=== PATIENT | male | born 2000 | race Caucasian/White ===

== ENCOUNTER 2021-12-22 13:45 | Emergency (ER) | payer OTHER, SELFPAY ==
[2021-12-22 13:47] VITALS: BP 119/99; PULSE 102; RESP 18; TEMP 36.7; O2SAT 96; BMI 28.8
[2021-12-22 14:17] VITALS: PULSE 89; RESP 16; O2SAT 95
--- NOTE | 2021-12-22 15:04 | EDS_ITS ---
HPI <ZEKE Peguero - Last Filed: 12/22/21 15:51> History of Present Illness Chief Complaint: ETOH Intox Narrative Narrative: 21-year-old male states he drank an excessive amount of alcohol last night and was vomiting. This morning when he woke up he felt so weak he could barely move. He drank some fluids and has not vomiting today. He feels a little better but is here at the request of his family to be evaluated for alcohol poisoning. He states he drank a whole bottle of [place] and rum cannot quantify the size. 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 [facility] <ZEKE Peguero - Last Filed: 12/22/21 15:51> [facility] Medical History (Updated 12/22/21 @ 15:[address] Maksim Hartman, ) Syncope Home Medications NK 12/22/21 [History Last Taken Unknown] Allergy/AdvReac Type Severity Reaction Status Date / Time risperidone [From Risperdal] Allergy Other Verified 12/22/21 13:47 Social History Smoking Status: Never smoker ROS <ZEKE Peguero - Last Filed: 12/22/21 15:51> ROS ED ROS Narrative Constitutional: Negative for fever, chills, malaise. Eyes: Negative for visual change. ENT: Negative for sore throat, ear pain, rhinorrhea. CVS: Negative for palpitations, chest pain, syncope. Respiratory: Negative for shortness of breath, cough, orthopnea. GI: Positive for vomiting. Negative for abdominal pain, diarrhea, constipation, melena, hematochezia. : Negative for dysuria, hematuria or frequency. Neuro: Negative for headache, motor/sensory dysfunction. Skin: Negative for rash, abscess, or wound. Musc: Negative for joint pain, swelling, trauma. Heme: Negative for easy bruising, bleeding, lymphadenopathy. EXAM <ZEKE Peguero Last Filed: 12/22/21 15:51> Physical Exam Narrative Exam Narrative: CONST: Patient sitting in no acute distress. EYES: Normal inspection. ENT: Normal inspection, moist mucous membranes. NECK: Normal inspection. RESP: No respiratory distress, CTAB. CVS: Regular rate and rhythm, no murmur, no gallop. ABD: Soft and nontender, no guarding or rebound, nondistended, no hepatosplenomegaly. SKIN: Color normal, no rash, warm, dry, intact. EXTREMITIES: Normal appearance, no pedal edema. NEURO: Oriented x4. PSYCH: Normal affect. Const Vital Signs: 12/22/21 13:47 12/22/21 14:15 12/22/21 14:17 Temperature 98.1 F Temperature Source Temporal Pulse Rate 102 H 89 Respiratory Rate 18 16 Respiratory Pattern Normal Blood Pressure 119/99 H Blood Pressure Mean 105 Pulse Ox 96 95 Oxygen Delivery Method Room Air Room Air <Dr. Maksim Hartman DO - Last Filed: 12/22/21 15:56> Physical Exam Const Vital Signs: 12/22/21 13:47 12/22/21 14:15 12/22/21 14:17 Temperature 98.1 F Temperature Source Temporal Pulse Rate 102 H 89 Respiratory Rate 18 16 Respiratory Pattern Normal Blood Pressure 119/99 H Blood Pressure Mean 105 Pulse Ox 96 95 Oxygen Delivery Method Room Air Room Air [facility] <April Chaudhari PA - Last Filed: 12/22/21 15:51> [facility] Narrative Medical decision making narrative: Patient was binge drinking alcohol last night and was vomiting which is stopped, but today presents with overall fatigue. He appears well nontoxic. Initial BP 119/99, HR 102, otherwise normal. He is fully alert and oriented with an unremarkable medical exam. No weakness noted. BMP within normal limits and he was treated with 1 L IV fluids and advised to continue oral hydration. He was discharged in stable condition. 1. History of binge drinking alcohol Lab Data Labs: Laboratory Results - last 24 hr 12/22/21 15:00 Sodium 140 Potassium 3.9 Chloride 106 Carbon Dioxide 30.0 Anion Gap 4 L BUN 13 Creatinine 0.82 Estim Creat Clear Calc 142.50 Est GFR (MDRD) Af Amer 151 Est GFR (MDRD) Non-Af 125 BUN/Creatinine Ratio 15.9 Glucose 97 Calcium 9.0 <Dr. Maksim Hartman DO - Last Filed: 12/22/21 15:56> [facility] Narrative Medical decision making narrative: Patient was binge drinking alcohol last night and was vomiting which is stopped, but today presents with overall fatigue. He appears well nontoxic. Initial BP 119/99, HR 102, otherwise normal. He is fully alert and oriented with an unremarkable medical exam. No weakness noted. BMP within normal limits and he was treated with 1 L IV fluids and advised to continue oral hydration. He was discharged in stable condition. 1. History of binge drinking alcohol I performed a history and physical examination of the patient and discussed management plan with the physician bioinformatics assistant. I reviewed the physician bioinformatics assistant's note and agree with the documented findings and plan of care. Patient drank a significant quantities of alcohol last night. When he woke this morning he states that his body and unable to move and felt stiff. he is feeling better after some IV fluids and is tolerating solid food and Gatorade. He is requesting clearance [facility]. Maksim Hartmna DO, MS Lab Data Labs: Laboratory Results - last 24 hr 12/22/21 15:00 Sodium 140 Potassium 3.9 Chloride 106 Carbon Dioxide 30.0 Anion Gap 4 L BUN 13 Creatinine 0.82 Estim Creat Clear Calc 142.50 Est GFR (MDRD) Af Amer 151 Est GFR (MDRD) Non-Af 125 BUN/Creatinine Ratio 15.9 Glucose 97 Calcium 9.0 Discharge Plan Triage Chief Complaint: ETOH Intox Other Complaint: Poisoning ED Midlevel Provider: April Chaudhari ED Provider: Maksim Hartman Dx/Rx/DC Orders Clinical Impression: Alcohol consumption binge drinking, Acute dehydration Instructions: ED Alcohol Intoxication Prescriptions: No Action NK Primary Care Provider: Care Physician,No Primary Referrals: NOT,DEFINED [NON-STAFF] - Activity Restrictions/Additional Instructions: Please drink responsibly and stay hydrated. Disposition Disposition: Home, Self Care
[2021-12-22] MEDS: 0.9% Normal Saline 1,000 ML 1000 ML IV (15:10)
[2021-12-22 15:36] LABS: Anion Gap 4 (5-15); BUN 13 mg/dL (7-18); BUN/Creat Ratio 15.9 RATIO (10-20); Chloride 106 mmol/L (98-107); Creatinine, Serum 0.82 mg/dL (0.70-1.30); EST Glomerular Filtration Rate 125 mL/min (>60); Est Glom Filt Rate - Afr Amer 151 mL/min (>60); Glucose 97 mg/dL (74-106); Potassium 3.9 mmol/L (3.5-5.1); Sodium Level 140 mmol/L (136-145)
[2021-12-22 16:03] VITALS: BP 118/70; PULSE 72
--- NOTE | 2021-12-22 16:03 | CM.ED ---
Social Work Note SW reviewed chart, Pt presented to [facility] for ETOH intox. SW in to speak with pt. SW introduced self and role at [facility]. Pt has guest present in room. Pt gave this worker permission to speak to him in front of his guest. SW asked pt about his ETOH use and if he would like resources. Pt laughed at this worker, states he doesn't want any resources. SW asked pt if he is planning on quitting or cutting back and pt said no. Pt states that he has been through this before for Probation. SW did provide pt with PCP list. Mara Barnes [employer], [employer]
== END 2021-12-22 16:08 | disposition home or self-care (01) ==
PROVIDERS: Physician Assistant; Emergency Provider Emergency Medicine; Visit Provider Emergency Medicine
DX: F10.10 Alcohol abuse, uncomplicated (principal); Y90.9 Presence of alcohol in blood, level not specified; E86.0 Dehydration
CPT/HCPCS: 80048; 96360; 99283; J7030; A4216

== ENCOUNTER 2023-04-29 15:11 | Emergency (ER) | payer OTHER, SELFPAY ==
[2023-04-29 15:13] VITALS: BP 149/79; PULSE 91; RESP 18; TEMP 36.6; O2SAT 97; BMI 26.2
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
--- NOTE | 2023-04-29 15:30 | CT_ITS ---
EXAM: CT MAXILLOFACIAL WITHOUT INTRAVENOUS CONTRAST CLINICAL INDICATION: left eye orbit trauma TECHNIQUE: Helically acquired images were obtained of the face without intravenous contrast. This CT exam was performed using one or more of the following dose reduction techniques: automated exposure control, adjustment of the mA and/or kV according to patient size, and/or use of iterative reconstruction technique. RADIATION DOSE: CTDIvol = 29.38 mGy, DLP = 642.95 mGy-cm COMPARISON: No relevant prior studies available. FINDINGS: BONES/JOINTS: There is no underlying fracture. Soft tissue swelling of the left maxilla, left lateral scalp,left forehead, and left periorbital region. No discrete lytic or blastic abnormalities. SOFT TISSUES: See above. ORBITS: Unremarkable. Both globes are unremarkable. Extraocular muscles are normal. Retrobulbar fat appears unremarkable. SINUSES: Unremarkable as visualized. Clear. MASTOID AIR CELLS: Unremarkable as visualized. Clear. DENTAL: No acute findings. No periodontal osseous erosion. CT/Sinus/Facial Bone IMPRESSION: There is no underlying fracture. Soft tissue swelling of the left maxilla, left lateral scalp,left forehead, and left periorbital region. Electronically Signed: Brien Fortune MD at 16:18 EDT ,
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
[2023-04-29] MEDS: Acetaminophen 500 MG Tablet 1000 MG PO (15:38)
== END 2023-04-29 16:47 | disposition home or self-care (01) ==
PROVIDERS: Emergency Provider Emergency Medicine; Visit Provider Emergency Medicine
DX: S06.0X0A Concussion without loss of consciousness, initial encounter (principal); S00.83XA Contusion of other part of head, initial encounter; Y04.8XXA Assault by other bodily force, initial encounter
CPT/HCPCS: 70450; 70486; 99283

== ENCOUNTER → 2024-02-12 | Outpatient (CLI) | payer OTHER, SELFPAY ==
[2024-02-12 15:28] LABS: Absolute Lymphocyte Count 2.67 X10^3/uL (0.83-4.51); Absolute Neutrophil Count 4.7 X10^3/uL (2.0-7.7); Basophil# 0.06 X10^3/uL; Basophil% 0.7 % (0-1); Eosinophil# 0.16 X10^3/uL; Eosinophils% 1.9 % (0-5); Hematocrit 49.6 % (40-54); Hemoglobin 17.5 g/dL (13.0-16.5); Lymphocyte # 2.67 X10^3/ul (0.83-4.51); Lymphocyte % 32.4 % (19-41); Mean Corp Hgb Conc 35.3 g/dL (32-36); Mean Corpuscular Volume 87.9 fL (80-94); Mean Platelet Vol. 11.8 fl (6.2-12.0); Monocyte# 0.61 X10^3/uL; Monocyte% 7.4 % (0-10); NRBC Flagged by Analyzer 0 % (0-5); Neutrophil # 4.72 X10^3/uL (2.7-7.7); Neutrophil % 57.4 % (47-70); Platelet Count 243 K/mm3 (150-450); RBC Distribution Width SD 38.5 fl (35.1-43.9); Red Blood Count 5.64 M/mm3 (4.6-6.2); White Blood Count 8.2 K/mm3 (4.4-11.0)
[2024-02-12 16:18] LABS: ALB/GLOB Ratio 1.2 RATIO (0.9-2.4); AST(SGOT) 34 U/L (15-37); Alanine Aminotransfer ALT/SGPT 40 U/L (16-61); Albumin, Serum 4.2 g/dL (3.2-5.0); Alkaline Phosphatase 80 U/L (45-117); Anion Gap 8 (5-15); BUN 23 mg/dL (7-18); BUN/Creat Ratio 19.7 RATIO (10-20); Calcium,Total 9.3 mg/dL (8.5-10.1); Chloride 109 mmol/L (98-107); Cholesterol 120 mg/dL (200); Creatinine, Serum 1.17 mg/dL (0.70-1.30); EST Glomerular Filtration Rate 81 mL/min (>60); Est Glom Filt Rate - Afr Amer 99 mL/min (>60); Estradiol 12.1 pg/mL; Follicle Stimulating Hormone < 0.2 mIU/mL; Free T3 4.1 pg/mL (2.18-3.98); Globulin 3.4 g/dL (2.2-4.2); Glucose 85 mg/dL (74-106); High Density Lipoprotein 31 mg/dL; Luteinizing Hormone < 0.2 mIU/mL; PSA,Total- Diagnostic 0.45 ng/mL (0.0-4.0); Potassium 3.6 mmol/L (3.5-5.1); Protein, Total 7.6 g/dL (6.4-8.2); Sodium Level 141 mmol/L (136-145); T4 Free Direct 0.95 ng/dL (0.76-1.46); Thyroid Stim Hormone (TSH) 3.76 uIU/mL (0.358-3.74); Triglycerides 97 mg/dL; Very Low Density Lipoprotein 19 mg/dL (5-40)
[2024-02-14 04:07] LABS: PROGESTERONE <0.1 ng/mL (0.0-0.5)
[2024-02-19 11:59] LABS: PROLACTIN 7.5 ng/mL (3.6-31.5); Testosterone, % Free 4.02 % (1.50-4.20); Testosterone, Free >60.30 ng/dL (5.00-21.00); Testosterone, Total > 1500 ng/dL (264-916)
== END | disposition home or self-care (01) ==
LOC: MTLAB 10:43
PROVIDERS: Referring Provider Nurse Practitioner Family; Visit Provider Nurse Practitioner Family
DX: Z00.01 Encounter for general adult medical examination with abnormal findings (principal); Z79.890 Hormone replacement therapy
CPT/HCPCS: 36415; 80053; 80061; 82533; 82670; 83001; 83002; 84144; 84146; 84153; 84270; 84305; 84402; 84403; 84439; 84443; 84481; 85025

== ENCOUNTER → 2024-04-11 | Outpatient (CLI) | payer OTHER, SELFPAY ==
[2024-04-11 12:00] LABS: Absolute Lymphocyte Count 2.95 X10^3/uL (0.83-4.51); Absolute Neutrophil Count 2.4 X10^3/uL (2.0-7.7); Basophil# 0.06 X10^3/uL; Eosinophil# 0.19 X10^3/uL; Eosinophils% 3.1 % (0-5); Hematocrit 52.3 % (40-54); Hemoglobin 17.8 g/dL (13.0-16.5); Lymphocyte # 2.95 X10^3/ul (0.83-4.51); Lymphocyte % 48.7 % (19-41); Mean Corpuscular Hgb 30.3 pg (27.0-32.0); Mean Corpuscular Volume 88.9 fL (80-94); Mean Platelet Vol. 11.2 fl (6.2-12.0); Monocyte% 8.3 % (0-10); NRBC Flagged by Analyzer 0 % (0-5); Neutrophil # 2.35 X10^3/uL (2.7-7.7); Neutrophil % 38.7 % (47-70); Platelet Count 231 K/mm3 (150-450); RBC Distribution Width CV 12.5 % (11.6-14.6); RBC Distribution Width SD 40.9 fl (35.1-43.9); Red Blood Count 5.88 M/mm3 (4.6-6.2); White Blood Count 6.1 K/mm3 (4.4-11.0)
[2024-04-11 13:44] LABS: HIV - WCH Non-Reactive (Nonreactive); Hepatitis B Surface Antibody Non-Reactive; Hepatitis C Antibody Non-Reactive (Nonreactive)
[2024-04-11 15:19] LABS: ALB/GLOB Ratio 1.3 RATIO (0.9-2.4); AST(SGOT) 38 U/L (15-37); Alanine Aminotransfer ALT/SGPT 44 U/L (16-61); Albumin, Serum 4.4 g/dL (3.2-5.0); Alkaline Phosphatase 98 U/L (45-117); Anion Gap 7 (5-15); BUN 25 mg/dL (7-18); BUN/Creat Ratio 25.6 RATIO (10-20); Calcium,Total 9.5 mg/dL (8.5-10.1); Chloride 106 mmol/L (98-107); Cholesterol 150 mg/dL (200); Creatinine, Serum 0.98 mg/dL (0.70-1.30); EST Glomerular Filtration Rate 100 mL/min (>60); Est Glom Filt Rate - Afr Amer 121 mL/min (>60); Estradiol 17.7 pg/mL; Follicle Stimulating Hormone < 0.2 mIU/mL; Free T3 3.5 pg/mL (2.18-3.98); Globulin 3.3 g/dL (2.2-4.2); Glucose 97 mg/dL (74-106); High Density Lipoprotein 37 mg/dL; Luteinizing Hormone < 0.2 mIU/mL; Potassium 3.6 mmol/L (3.5-5.1); Protein, Total 7.7 g/dL (6.4-8.2); Sodium Level 138 mmol/L (136-145); T4 Free Direct 0.85 ng/dL (0.76-1.46); Triglycerides 102 mg/dL; Very Low Density Lipoprotein 20 mg/dL (5-40)
[2024-04-12 08:12] LABS: PROGESTERONE 0.2 ng/mL (0.0-0.5)
[2024-04-19 17:09] LABS: PROLACTIN 27.6 ng/mL (3.6-31.5); Testosterone, % Free 3.33 % (1.50-4.20); Testosterone, Free 34.77 ng/dL (5.00-21.00); Testosterone, Total 1044 ng/dL (264-916)
== END | disposition home or self-care (01) ==
LOC: BFHLAB 08:57
PROVIDERS: PCP Nurse Practitioner Family; Visit Provider Nurse Practitioner Family
DX: Z00.01 Encounter for general adult medical examination with abnormal findings (principal); Z20.9 Contact with and (suspected) exposure to unspecified communicable disease; Z79.890 Hormone replacement therapy
CPT/HCPCS: 36415; 80053; 80061; 82533; 82670; 83001; 83002; 84144; 84146; 84402; 84403; 84439; 84443; 84481; 85025; 86703; 86706; 86803

== ENCOUNTER → 2024-08-05 | Outpatient (CLI) | payer OTHER, SELFPAY ==
[2024-08-05 12:56] LABS: Hepatitis B Surface Antigen Non-Reactive (Nonreactive)
== END | disposition home or self-care (01) ==
LOC: BFHLAB 09:06
PROVIDERS: PCP Nurse Practitioner Family; Visit Provider Nurse Practitioner Family
DX: Z20.9 Contact with and (suspected) exposure to unspecified communicable disease (principal)
CPT/HCPCS: 36415; 87340

== ENCOUNTER 2024-09-11 09:57 | Emergency (ER) | payer OTHER, SELFPAY ==
[2024-09-11 09:58] VITALS: BP 156/88; PULSE 78; RESP 18; TEMP 36.5; O2SAT 98; BMI 24.8
--- NOTE | 2024-09-11 10:15 | CT_ITS ---
PROCEDURE: CTA HEAD AND NECK W/ CONTRAST REASON FOR EXAM: Left-sided headache, vision loss and syncopal episode. TECHNIQUE: CTA imaging of the head and neck from the aortic arch to the skull vertex with intravenous contrast. 3D reconstructions. CONTRAST: 100 cc of Isovue-300. COMPARISON: Comparison is made with prior CT scan of the head dated April 29, 2023. FINDINGS: Aortic Arch: Normal size and branching pattern. No significant atherosclerotic plaque. Brachiocephalic and Subclavians: Unremarkable RIGHT Carotid: Right CCA: Unremarkable. Right ICA: Unremarkable. Right ECA: Unremarkable. LEFT Carotid: Left CCA: Unremarkable. Left ICA: Unremarkable. Left ECA: Unremarkable. Vertebrals: Codominant. Arise from the subclavians. Both vertebrals form the basilar. RIGHT Vertebral: Small right vertebral artery. LEFT Vertebral: Unremarkable. No intracranial aneurysms or large vascular malformations are identified. Anterior cerebral arteries: Unremarkable. Middle cerebral arteries: Unremarkable. Basilar artery: Unremarkable. Posterior cerebral arteries: Unremarkable. Other major branches of the posterior circulation: Unremarkable. Major venous structures: Unremarkable. Other findings: No lymphadenopathy. Lung apices are clear. Bones are unremarkable. CT/CTA Head AND Neck W/ Contrast IMPRESSION: RIGHT CAROTID: Unremarkable. LEFT CAROTID: Unremarkable. VERTEBRALS: Small right vertebral artery. INTRACRANIAL: Unremarkable. One or more dose reduction techniques were used (e.g., Automated exposure contr ol, adjustment of the mA and/or kV according to patient size, use of iterative reconstruction technique). Reading Location: [id number]
--- NOTE | 2024-09-11 10:17 | EX.ED.VIS.EY ---
HPI History of Present Illness Chief Complaint: Vision Prob Informant: patient Narrative Narrative: 24-year-old male presenting to the emergency room with the chief complaint of headache and vision loss of the left eye. Patient states that he went to the gym today and did a leg lifting workout. He went to take a shower. While in the shower he says felt a sudden onset of pain on the left side of his head. He states that it was in excruciating pain and when he opened his eyes he noticed that he could not see out of the left eye. States a couple minutes went by and his vision came back and then the vision loss reoccurred. He notes his neck feels sore. He states is never had this happen to him before. He notes chronic vision issues in the left eye and that he cannot see far.. States currently he can see out of the left eye but objects appear blotchy with light. He also uses the term foggy. He notes that he is on a endurance supplement that resulted in elevation of hematocrit levels. He states he recently gave blood. He denies any known history of hypercoagulable states. He denies palpitations. No arm leg speech symptoms. 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 [facility] Medical History Syncope Home Medications ?Medication ?Instructions ?Recorded ?Last Taken ?Type dextroamphetamine-amphetamine ER 1 cap PO DAILY 09/11/24 Unknown History 20 mg 24hr capsule,extend release sertraline 50 mg tablet 75 mg PO DAILY 09/11/24 Unknown History Allergy/AdvReac Type Severity Reaction Status Date / Time risperidone (From Risperdal) Allergy Other Verified 09/11/24 09:58 Social History Smoking Status: Never smoker ROS ROS ED Constitutional Constitutional ED: Denies chills or weight loss Eyes Eyes: Reports other Details: See history of present illness ; Denies change in vision or diplopia ENT ENT ED: Denies ear pain, rhinorrhea or sore throat Cardiovascular Cardiovascular: Denies chest pain, orthopnea, palpitations or racing heartbeat Respiratory/Chest Respiratory/Chest: Denies cough, dyspnea or orthopnea Gastrointestinal Gastrointestinal: Denies abdominal pain, diarrhea, nausea or vomiting Genitourinary Genitourinary ED: Denies dysuria, hematuria or urinary frequency Musculoskeletal Musculoskeletal: Reports neck pain; Denies arthralgias or myalgias Integumentary Denies abscess or rash Neurologic Neurologic: Reports headache(s); Denies weakness Psychiatric Psychiatric: Denies anxiety, depression, suicidal ideation or suicidal thoughts Endocrine Endocrinology: Denies polydipsia, polyphagia or polyuria Allergic/Immunologic Allergic/Immunologic ED: Denies mouth swelling, tongue swelling or urticaria EXAM Physical Exam Const Vital Signs: 09/11/24 09:58 Temperature 97.7 F L Temperature Source Temporal Pulse Rate 78 Respiratory Rate 18 Blood Pressure 156/88 H Blood Pressure Mean 110 Pulse Ox 98 Oxygen Delivery Method Room Air Positive well nourished and well developed General Appearance ED: well developed HEENT Reports normocephalic, head/scalp atraumatic and moist mucous membranes HEENT Narrative: Pupils are 5-3 bilaterally. In a darkened room I do a funduscopic exam the optic disc appears normal. I do not see any evidence of retinal detachment. Arteries and veins appear normal. No photophobia. No injected conjunctiva. Eyes PERRL and EOMs intact bilaterally Neck no lymphadenopathy, supple and no JVD Neck Narrative: No bruits. Strong carotid upstroke. Resp normal respiratory effort and clear to auscultation bilaterally Cardio regular rate, regular rhythm and no murmurs GI normal to inspection, nondistended, normoactive bowel sounds and non-tender Palpation: soft Back/Spine no CVA tenderness and normal ROM Extremity normal to inspection General Extremety ED: Negative for edema General Extremity: Negative for edema Neuro oriented x3 and CN's II-XII intact bilaterally Sensorium / Orientation: alert Motor Exam: strength 5/5 throughout Psych mental status grossly normal Mood & Affect: Negative for depressed or tearful Skin no rashes or lesions noted and no wounds MDM MDM MDM Narrative Medical decision making narrative: Differential diagnosis includes stroke aneurysm dissection intracranial hemorrhage polycythemia retinal detachment optic neuritis acute glaucoma ocular migraine migraine headache Patient received a liter of IV fluids and later Toradol. CTA of the head neck shows no acute findings or evidence of dissection/aneurysm. His hemoglobin level is 17.2 which is in line with prior hemoglobin levels and I do not think that the polycythemia is the acute cause. EKG is a normal sinus rhythm with a rate of 90 bpm. Patient has an appointment with ophthalmology later today. I would encourage him to keep this appointment. Follow-up with primary care as needed return if worsening or concerns. History & Record Review Discussion w/independent historian: Patient Lab Data Attestation: I reviewed the patient's lab results. Discharge Plan Triage Chief Complaint: Vision Prob ED Provider: Maksim Hartman Dx/Rx/DC Orders Clinical Impression: Headache, Monocular vision loss Prescriptions: No Action dextroamphetamine-amphetamine 20 mg capsule,extended release 24hr 1 cap PO DAILY sertraline 50 mg tablet 75 mg PO DAILY Primary Care Provider: Stephania Falcon Referrals: Stephania Falcon, PACU RN-C [Primary Care Provider] - As Needed Activity Restrictions/Additional Instructions: If able I would recommend keeping your appointment with your eye doctor today. Print Language: Syriac Disposition Disposition: Home, Self Care Lab / Micro Data Attestation: I reviewed the patient's lab results. 09/11/24 10:10 09/11/24 10:10 Labs: Laboratory Results - last 24 hr 09/11/24 10:10: WBC 5.8, RBC 5.71, Hgb 17.6 H, Hct 50.9, MCV 89.1, MCH 30.8, MCHC 34.6, RDW Std Deviation 42.2, RDW Coeff of Brandon 12.9, Plt Count 249, MPV 10.6, Immature Gran % (Auto) 0.300, Neut % (Auto) 58.4, Lymph % (Auto) 30.8, Jack % (Auto) 7.6, Eos % (Auto) 1.9, Baso % (Auto) 1.0, Absolute Neuts (auto) 3.4, Absolute Lymphs (auto) 1.79, Nucleated RBC % 0, PT 13.0, INR 1.0, APTT 25.1, Sodium 141, Potassium 4.1, Chloride 101, Carbon Dioxide 27.9, Anion Gap 12, BUN 21 H, Creatinine 1.32 H, Estim Creat Clear Calc 86.29, Est GFR (MDRD) Non-Af 77, BUN/Creatinine Ratio 16.1, Glucose 85, Calcium 10.2, Total Bilirubin 0.42, AST 70 H, ALT 69 H, Alkaline Phosphatase 85, Total Protein 7.6, Albumin 4.8, Globulin 2.8, Albumin/Globulin Ratio 1.8 Imaging Radiology Impression Head/Neck CTA 09/11/24 10:15 IMPRESSION: RIGHT CAROTID: Unremarkable. LEFT CAROTID: Unremarkable. VERTEBRALS: Small right vertebral artery. INTRACRANIAL: Unremarkable. One or more dose reduction techniques were used (e.g., Automated exposure control, adjustment of the mA and/or kV according to patient size, use of iterative reconstruction technique). Reading Location: [id number]
[2024-09-11 10:27] LABS: Absolute Lymphocyte Count 1.79 X10^3/uL (0.83-4.51); Absolute Neutrophil Count 3.4 X10^3/uL (2.0-7.7); Basophil# 0.06 X10^3/uL; Eosinophil# 0.11 X10^3/uL; Eosinophils% 1.9 % (0-5); Hematocrit 50.9 % (40-54); Hemoglobin 17.6 g/dL (13.0-16.5); Lymphocyte # 1.79 X10^3/ul (0.83-4.51); Lymphocyte % 30.8 % (19-41); Mean Corp Hgb Conc 34.6 g/dL (32-36); Mean Corpuscular Hgb 30.8 pg (27.0-32.0); Mean Corpuscular Volume 89.1 fL (80-94); Mean Platelet Vol. 10.6 fl (6.2-12.0); Monocyte# 0.44 X10^3/uL; Monocyte% 7.6 % (0-10); NRBC Flagged by Analyzer 0 % (0-5); Neutrophil % 58.4 % (47-70); Platelet Count 249 K/mm3 (150-450); RBC Distribution Width CV 12.9 % (11.6-14.6); RBC Distribution Width SD 42.2 fl (35.1-43.9); Red Blood Count 5.71 M/mm3 (4.6-6.2); White Blood Count 5.8 K/mm3 (4.4-11.0)
[2024-09-11 10:41] LABS: Partial Thromboplast Time 25.1 Seconds (24.1-36.2)
[2024-09-11] MEDS: 0.9% Normal Saline (1000mL) 1,000 ML 999 ML IV (10:44)
[2024-09-11 10:51] LABS: ALB/GLOB Ratio 1.8 RATIO (0.9-2.4); AST(SGOT) 70 U/L (<=37); Alanine Aminotransfer ALT/SGPT 69 U/L (<=46); Albumin, Serum 4.8 g/dL (3.5-5.0); Alkaline Phosphatase 85 U/L (40-129); Anion Gap 12 (5-15); BUN 21 mg/dL (4-19); BUN/Creat Ratio 16.1 RATIO (10-20); Calcium,Total 10.2 mg/dL (7.6-11.0); Carbon Dioxide 27.9 mmol/L (21.0-32.0); Chloride 101 mmol/L (98-108); Creatinine, Serum 1.32 mg/dL (0.70-1.20); EST Glomerular Filtration Rate 77 (>60); Estimated Creatinine Clearance 86.29 ml/min (50-250); Globulin 2.8 g/dL (2.2-4.2); Glucose 85 mg/dL (70-99); Potassium 4.1 mmol/L (3.3-5.1); Protein, Total 7.6 g/dL (5.9-8.4); Sodium Level 141 mmol/L (133-145); Total Bilirubin 0.42 mg/dL (0.00-1.30)
[2024-09-11 10:58] VITALS: BP 137/75; PULSE 88; RESP 18; O2SAT 96
[2024-09-11] MEDS: Ketorolac 30 MG/ML Syringe IV (11:15)
[2024-09-11 11:31] VITALS: BP 131/70; PULSE 87; RESP 15; TEMP 36.6; O2SAT 97
== END 2024-09-11 11:34 | disposition home or self-care (01) ==
PROVIDERS: Emergency Provider Emergency Medicine; PCP Nurse Practitioner Family; Visit Provider Emergency Medicine
DX: R51.9 Headache, unspecified (principal); H54.7 Unspecified visual loss; Z79.899 Other long term (current) drug therapy
CPT/HCPCS: 70496; 70498; 80053; 85025; 85610; 85730; 93005; 96374; 99283; Q9967; A4216

== ENCOUNTER 2024-12-04 08:52 | Emergency (ER) | payer OTHER, SELFPAY ==
[2024-12-04 08:53] VITALS: BP 147/83; PULSE 98; RESP 14; TEMP 36.3; O2SAT 98; BMI 25.9
--- NOTE | 2024-12-04 09:07 | CT_ITS ---
PROCEDURE: SINUS/FACIAL BONE W/WO CONTRAS REASON FOR EXAM: AURICULAR HEMATOMA, MASTOID TENDERNESS TECHNIQUE: CT of the paranasal sinuses with contrast. Coronal and Sagittal reconstruction series were provided. CONTRAST: 97 cc Isovue-300 One or more dose reduction techniques were used (e.g., Automated exposure control, adjustment of the mA and/or kV according to patient size, use of iterative reconstruction technique). RADIATION DOSE SUMMARY: DLP: 1699.3 mGycm COMPARISON: None FINDINGS: Frontal: Clear Ethmoid: Clear Sphenoid: Clear Maxillary: Clear Turbinates: Unremarkable Nasal Septum: There is deviation of the anterior aspect of the nasal septum, 0.5 cm towards the right, without obstruction of the nasal cavity. Mastoids/Middle Ears: Unremarkable There is irregular thickening of the right and left auricular soft tissues with calcified components, consistent with chronic inflammation, with a 2.0 x 2.0 cm heterogeneous nonenhancing density on the right, image 53/73, and 1.0 by 1.2 cm heterogeneous intermediate density focus on the left, image 42/73, consistent with the history of auricular hematoma. There is no visible underlying mastoid injury. There are no suspicious enhancing lesions. CT/Sinus/Facial Bone W/WO Contras IMPRESSION: There is deviation of the anterior aspect of the nasal septum, 0.5 cm towards t he right, without obstruction of the nasal cavity. There is irregular thickening of the right and left auricular soft tissues with calcified components, consistent with chronic inflammation, with a 2.0 x 2.0 cm heterogeneous nonenhancing density on the rig ht, image 53/73, and 1.0 by 1.2 cm heterogeneous intermediate density focus on the left, image 42/73, consistent with the histor y of auricular hematoma. Reading Location: [facility]
[2024-12-04 09:30] LABS: Absolute Lymphocyte Count 1.63 X10^3/uL (0.83-4.51); Absolute Neutrophil Count 2.2 X10^3/uL (2.0-7.7); Basophil# 0.06 X10^3/uL; Basophil% 1.4 % (0-1); Eosinophil# 0.09 X10^3/uL; Eosinophils% 2.1 % (0-5); Hematocrit 49.7 % (40-54); Hemoglobin 16.9 g/dL (13.0-16.5); Lymphocyte # 1.63 X10^3/ul (0.83-4.51); Lymphocyte % 37.4 % (19-41); Mean Corpuscular Hgb 31.2 pg (27.0-32.0); Mean Corpuscular Volume 91.7 fL (80-94); Monocyte# 0.42 X10^3/uL; Monocyte% 9.6 % (0-10); NRBC Flagged by Analyzer 0 % (0-5); Neutrophil # 2.15 X10^3/uL (2.7-7.7); Neutrophil % 49.3 % (47-70); Platelet Count 287 K/mm3 (150-450); RBC Distribution Width SD 44.1 fl (35.1-43.9); Red Blood Count 5.42 M/mm3 (4.6-6.2); White Blood Count 4.4 K/mm3 (4.4-11.0)
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
[2024-12-04] MEDS: Ketorolac 15 MG/ML Vial IV (09:50)
[2024-12-04 09:58] LABS: Anion Gap 10 (5-15); BUN 16 mg/dL (4-19); BUN/Creat Ratio 17.1 RATIO (10-20); Calcium,Total 9.9 mg/dL (7.6-11.0); Carbon Dioxide 29.9 mmol/L (21.0-32.0); Chloride 100 mmol/L (98-108); Creatinine, Serum 0.93 mg/dL (0.70-1.20); EST Glomerular Filtration Rate 117 (>60); Estimated Creatinine Clearance 118.49 ml/min (50-250); Glucose 99 mg/dL (70-99); Potassium 4.9 mmol/L (3.3-5.1); Sodium Level 139 mmol/L (133-145)
[2024-12-04 12:31] VITALS: BP 147/75; PULSE 90; RESP 18; O2SAT 96
[2024-12-04] MEDS: Lidocaine 1% (20 ml mdv) 20 ML Vial INFILT (12:34)
== END 2024-12-04 12:44 | disposition home or self-care (01) ==
PROVIDERS: Emergency Provider Surgery; PCP Nurse Practitioner Family; Visit Provider Surgery
DX: S00.431A Contusion of right ear, initial encounter (principal); H60.11 Cellulitis of right external ear; X58.XXXA Exposure to other specified factors, initial encounter
CPT/HCPCS: 70488; 80048; 85025; 96374; 96376; 99282; Q9967

== ENCOUNTER → 2025-03-20 | Outpatient (CLI) | payer OTHER, SELFPAY ==
[2025-03-20 16:16] LABS: AST(SGOT) 38 U/L (<=37); Alanine Aminotransfer ALT/SGPT 39 U/L (<=46); Albumin, Serum 4.6 g/dL (3.5-5.0); Alkaline Phosphatase 75 U/L (40-129); Anion Gap 11 (5-15); BUN 16 mg/dL (4-19); BUN/Creat Ratio 18.0 RATIO (10-20); Calcium,Total 9.4 mg/dL (7.6-11.0); Carbon Dioxide 26.0 mmol/L (21.0-32.0); Chloride 103 mmol/L (98-108); Globulin 2.3 g/dL (2.2-4.2); Glucose 91 mg/dL (70-99); Potassium 3.9 mmol/L (3.3-5.1)
== END | disposition home or self-care (01) ==
LOC: BFHLAB 11:48
PROVIDERS: PCP Nurse Practitioner Family; Visit Provider Nurse Practitioner Family
DX: R74.8 Abnormal levels of other serum enzymes (principal)
CPT/HCPCS: 36415; 80053